=== PATIENT | male | born 1990 | race Caucasian/White ===

== ENCOUNTER → 2016-06-04 | Outpatient (CLI) | payer OTHER ==
--- NOTE | 2016-06-04 14:20 | REP ---
THORACIC SPINE, THREE VIEWS: HISTORY: Thoracic pain. There is no acute fracture or subluxation. There are old compression fractures of the T8 and T12 vertebral bodies with minimal height loss. The intervertebral discs are normal in height. There is minimal scoliosis, convex to the right. IMPRESSION: There is no acute fracture or subluxation. Signed by Frank Vance MD 06/04/2016 02:22 P
--- NOTE | 2016-06-04 14:29 | REP ---
LUMBAR SPINE, FIVE VIEWS: HISTORY: Thoracic fracture. There is no acute fracture of subluxation. There is an old compression fracture of the T12 vertebral body with minimal height loss. The L4-5 intervertebral disc is decreased in height consistent with disc degeneration. The facet joints are normal in appearance. IMPRESSION: Degenerative change, as described above. Signed by Frank Vance MD 06/04/2016 02:34 P
== END ==
LOC: M RAD 13:32
PROVIDERS: ATTEND Chiropractor
DX: M54.5 Low back pain (principal); M54.6 Pain in thoracic spine

== ENCOUNTER → 2020-12-22 | Outpatient (CLI) | payer OTHER ==
[~2020-12-22] MED LIST: ISOVUE-300 61% 50ML VIAL As Ordered ONE; PROHANCE 279.3MG/ML 5ML VIAL As Ordered ONE
--- NOTE | 2020-12-22 09:49 | REP ---
INDICATION: OTHER SYNOVITIS AND TENOSYNOVITIS, RIGHT SHOULDER. COMPARISON: None. TECHNIQUE: Coronal oblique T1, T2 fat sat, sagittal oblique T2 fat sat, axial T2 fat sat, gradient echo. Post arthrogram T1 fat sat and T2 fat sat in multiple planes. FINDINGS: Rotator cuff: No evidence of tear. There is mild supraspinatus tendinopathy/tendinitis. Acromioclavicular joint: Unremarkable. Acromion: Type 2 Biceps Tendon: In bicipital groove, no tenosynovitis. Hill Sach's deformity: None. Deltoid muscle: No abnormal signal. Biceps labral complex: Intact. Labrum: No tear. Cartilage: No defects. Bone marrow: Subcentimeter subcortical cystic changes seen in the superior humeral head. There is a bone lesion in the humeral head which is oval in shape and measures 1.7 x 1.1 x 1.1 cm. It is low in signal on both T1 and T2 weighted images. This is likely benign. Joint fluid: There is a tiny amount of subacromial fluid. IMPRESSION: Mild supraspinatus tendinopathy/tendinitis with a tiny amount of adjacent subacromial fluid. No evidence of rotator cuff tear or labral tear. Subcortical subcentimeter cystic change in the superior humeral head. Bone lesion in the humeral head 1.7 x 1.1 x 1.1 cm is low in signal on both T1 and T2 weighted images and is likely benign. Recommend correlation with plain films. <Electronically signed by Edward Huang > 12/22/20 [id number]
--- NOTE | 2020-12-22 16:30 | REP ---
INDICATION: OTHER SYNOVITIS AND TENOSYNOVITIS, RIGHT SHOULDER COMPARISON: None. TECHNIQUE: The procedure was performed under the direct supervision of Dr. Henderson. The benefits and risks including but not limited to pain, infection, bleeding and anaphylaxis were explained to the patient and informed consent was obtained. The right glenohumeral joint space was localized using fluoroscopic guidance. The skin was prepped and draped in a sterile fashion. 1% lidocaine was used as a local anesthetic. Using fluoroscopic guidance a 22 gauge spinal needle was inserted and advanced into the joint. 0.5 ml of Isovue-300 was injected to verify placement. 11 ml of a solution containing 20 ml of sterile saline and 0.15 ml of ProHance was injected into the joint. The needle was removed and the patient was taken to MRI for postprocedural imaging. The patient tolerated the procedure well and there were no immediate complications. Less than 6 seconds of fluoro time was utilized for this procedure. FINDINGS: None IMPRESSION: Fluoro guidance for right shoulder MRI arthrogram injection. <Electronically signed by Eliecer Delaney > 12/22/20 1614 <Electronically signed by Chaitanya Henderson > 12/22/20 1621
== END ==
LOC: M RADPRO 06:31
PROVIDERS: ATTEND Physician Assistant
DX: R93.7 Abnormal findings on diagnostic imaging of other parts of musculoskeletal system (principal); M65.811 Other synovitis and tenosynovitis, right shoulder
CPT/HCPCS: 23350; 73223; 77002; A9576; Q9967

== ENCOUNTER → 2021-01-05 | Outpatient (CLI) | payer OTHER | LOC: M PLALAB 12:46 | PROVIDERS: ATTEND Internal Medicine Infectious Disease | DX: B94.8 Sequelae of other specified infectious and parasitic diseases (principal) ==